=== PATIENT | female | born 1990 | race Caucasian/White ===

== ENCOUNTER 2017-11-17 12:53 | Emergency (ER) | payer SELFPAY ==
[~2017-11-17] VITALS: Ht 162.6 cm; Wt 88.6 kg
[2017-11-17] MEDS ORDERED: METOPROL TAR25 MG PO (13:09)
[2017-11-17 13:38] LABS: HEMATOCRIT 40.3 % (37.0-47.0); HEMOGLOBIN 13.9 g/dl (12.0-16.0); IMMATURE GRANULOCYTES 0.3 % (0.0-5.0); MEAN CELL VOLUME 88.6 fL CALC (80.0-100.0); MEAN CORPUSCULAR HGB 30.5 pG CALC (26.0-32.0); MEAN CORPUSCULAR HGB CONC 34.5 g/L CALC (32.0-36.0); NEUT# 4.29 thou/uL (2.00-7.15); RED BLOOD COUNT 4.55 mill/uL (4.20-5.60); RED CELL DISTRI WIDTH 12.4 % (11.5-15.5)
[2017-11-17 13:39] LABS: URINE BILIRUBIN - DIPSTICK NEGATIVE (NEGATIVE); URINE BLOOD DIPSTICK MODERATE (NEGATIVE); URINE COLOR YELLOW; URINE GLUCOSE - DIPSTICK NEGATIVE (NEGATIVE); URINE KETONE NEGATIVE (NEGATIVE); URINE LEUK ESTERASE NEGATIVE (NEGATIVE); URINE NITRITE - DIPSTICK NEGATIVE (Negative); URINE PROTEIN - DIPSTICK NEGATIVE (NEG-TRACE); URINE SPECIFIC GRAVITY <=1.005; URINE UROBILINOGEN - DIPSTICK 0.2 E.U./dL (0.2)
[2017-11-17 13:49] LABS: URINE CLARITY SL CLOUDY; URINE EPITHELIAL CELLS FEW EPI/hpf (0-FEW)
[2017-11-17 13:52] LABS: INFLUENZA A NONE DETECTED (NONE DETECT); INFLUENZA B NONE DETECTED (NONE DETECT)
[2017-11-17 13:53] LABS: BARBITURATES NEGATIVE (NEGATIVE); COCAINE NEGATIVE (NEGATIVE); METHADONE NEGATIVE (NEGATIVE); OXCYCODONE NEGATIVE (NEGATIVE); TETRAHYDROCANNABIONOL NEGATIVE (NEGATIVE); TRICYLIC ANTIDEPRESSANTS NEGATIVE (NEGATIVE)
[2017-11-17 13:55] LABS: ALBUMIN 4.5 g/dL (3.2-5.0); ALKALINE PHOSPHATASE 82 u/l (38-126); ANION GAP 13 (6-22 (CALC)); BILIRUBIN, TOTAL 0.5 mg/dL (0.0-1.4); BUN 11 mg/dL (7-17); BUN/CREATININE RATIO 16 (12-20 (CALC)); CARBON DIOXIDE 25 mmol/l (22-30); CHLORIDE 105 mmol/l (95-108); CREATININE 0.7 mg/dL (0.5-1.0); GFR > 60 ML/MIN (>=60 (CALC)); GFR FOR AFR.AMER. > 60 ML/MIN (>=60 (CALC)); SGOT/AST 24 u/l (14-36); SGPT/ALT 40 u/l (9-52); SODIUM 138 mmol/l (137-146); TOTAL PROTEIN 7.8 g/dL (6.3-8.2)
[2017-11-17 14:06] LABS: MYOGLOBIN 24 ng/mL (0 - 62)
[2017-11-17] MEDS ORDERED: AMOXICILLIN875 MG PO (15:13)
[2017-11-17 15:22] VITALS: BP 114/59
== END 2017-11-17 15:24 | disposition home or self-care (01) | DRG 153 ==
LOC: ED 12:53
PROVIDERS: Emergency Medicine
DX: J02.0 Streptococcal pharyngitis (principal); R00.2 Palpitations; R06.02 Shortness of breath; R53.1 Weakness; R50.9 Fever, unspecified
CPT/HCPCS: Q9967

== ENCOUNTER 2018-09-13 10:04 | Emergency (ER) | payer SELFPAY ==
[~2018-09-13] VITALS: Ht 162.6 cm; Wt 86.0 kg
[~2018-09-13 10:04] MED LIST: AMOXICILLIN875 MG PO; METOPROL TAR25 MG PO
[2018-09-13 10:37] LABS: GFR > 60 ML/MIN (>=60 (CALC)); GFR FOR AFR.AMER. > 60 ML/MIN (>=60 (CALC)); HEMATOCRIT 43.6 % (37.0-47.0); HEMOGLOBIN 14.7 g/dl (12.0-16.0); IMMATURE GRANULOCYTES 1.3 % (0.0-5.0); MEAN CELL VOLUME 88.8 fL CALC (80.0-100.0); MEAN CORPUSCULAR HGB 29.9 pG CALC (26.0-32.0); MEAN CORPUSCULAR HGB CONC 33.7 g/L CALC (32.0-36.0); NEUT# 6.37 thou/uL (2.00-7.15); RED BLOOD COUNT 4.91 mill/uL (4.20-5.60); RED CELL DISTRI WIDTH 12.7 % (11.5-15.5)
[2018-09-13 10:53] LABS: ANION GAP 14 (6-22 (CALC)); BUN 14 mg/dL (7-17); BUN/CREATININE RATIO 22 (12-20 (CALC)); CARBON DIOXIDE 24 mmol/l (22-30); CHLORIDE 104 mmol/l (95-108); CREATININE 0.7 mg/dL (0.5-1.0); GFR > 60 ML/MIN (>=60 (CALC)); GFR FOR AFR.AMER. > 60 ML/MIN (>=60 (CALC)); POTASSIUM 4.5 mmol/l (3.5-5.1); SODIUM 138 mmol/l (137-146)
[2018-09-13 12:37] VITALS: BP 130/50
== END 2018-09-13 12:37 | disposition home or self-care (01) | DRG 313 ==
LOC: ED 10:04
PROVIDERS: Family Medicine
DX: R07.89 Other chest pain (principal); R06.02 Shortness of breath; R94.31 Abnormal electrocardiogram [ECG] [EKG]; E66.9 Obesity, unspecified
CPT/HCPCS: Q9967

== ENCOUNTER 2019-06-26 08:59 | Inpatient (IN) | payer SELFPAY ==
[~2019-06-26] VITALS: Ht 162.6 cm; Wt 90.7 kg
--- NOTE | 2019-06-26 08:59 | NUR ---
STAFF ADVISED OF PT SCREENING AND STATUS VIA HEALTH DEPARTMENT AND PLACED IN [facility] PRECAUTION ROOM PER CDC RECOMMENDATIONS
--- NOTE | 2019-06-26 08:59 | NUR ---
PT TO NEGATIVE PRESSURE ROOM VIA WC WITH MASK IN PLACE
--- NOTE | 2019-06-26 09:24 | NUR ---
DR ROSALES AT BEDSIDE FOR ASSESSMENT
[2019-06-26 09:39] LABS: HEMATOCRIT 42.7 % (37.0-47.0); HEMOGLOBIN 14.4 g/dl (12.0-16.0); IMMATURE GRANULOCYTES 0.5 % (0.0-5.0); MEAN CELL VOLUME 87.5 fL CALC (80.0-100.0); MEAN CORPUSCULAR HGB 29.5 pG CALC (26.0-32.0); MEAN CORPUSCULAR HGB CONC 33.7 g/L CALC (32.0-36.0); NEUT# 4.16 thou/uL (2.00-7.15); RED BLOOD COUNT 4.88 mill/uL (4.20-5.60); RED CELL DISTRI WIDTH 12.7 % (11.5-15.5)
[2019-06-26 10:05] LABS: ANION GAP 15 (6-22 (CALC)); BUN 20 mg/dL (7-17); BUN/CREATININE RATIO 35 (12-20 (CALC)); CARBON DIOXIDE 19 mmol/l (22-30); CHLORIDE 108 mmol/l (95-108); CREATININE 0.6 mg/dL (0.5-1.0); GFR > 60 ML/MIN (>=60 (CALC)); GFR FOR AFR.AMER. > 60 ML/MIN (>=60 (CALC)); POTASSIUM 4.1 mmol/l (3.5-5.1); SODIUM 138 mmol/l (137-146)
--- NOTE | 2019-06-26 10:15 | NUR ---
PT NASAL AND ORAL SWAB FOR COVID-19 PER [facility] DEPARTMENT RECOMMENDATION; PT TOLERATED WELL; PT REPORTS FEELING TIRED AT THIS TIME; VSS; O2 SATURATION 96%ON RA; PT ADVISED OF CONTINUED WAIT TIME; DENIES ANY NEEDS AT THIS TIME
--- NOTE | 2019-06-26 11:09 | NUR ---
PT MEDICATED AT THIS TIME PER MAR FOR COUGH; DR ROSALES AT BEDSIDE TO DISCUSS POC AND PLAN TO ADMIT; PT VERBALIZES UNDERSTANDING; PT ASSSITED TO BSC; MONITORING DEVICES REAPPLIED; DRY PERSISTENT COUGH NOTED; PT DENIES ANY PAIN AT THIS TIME; CALL LIGHT WITHIN REACH; WILL CONTINUE TO MONITOR
--- NOTE | 2019-06-26 12:00 | NUR ---
PT RESTING ON STRETCHER; NO S/S OF DISTRESS NOTED; ADVISED OF CONTINUED WAIT TIME; CALL LIGHT WITHIN REACH
--- NOTE | 2019-06-26 12:50 | NUR ---
Admission Note Report Given to: SAIRA GILLETTE Transported by: Wheelchair X Stretcher Transported with: X Nurse X Transporter X Patent IV O2 X Associate Professor Of [employer] Location: ICU X [facility]
--- NOTE | 2019-06-26 12:55 | NUR ---
PT ARRIVED TO UNIT VIA STRETHCER WITH ER STAFF ON PRECAUTIONS AND FACE MASK ON; ALERT AND ORIENTED. TRANSPORTED TO NEGATIVE PRESSURE ROOM AND PLACED ON PRECAUTIONS. STOOD AND AMBULATED TO BED WITH STEADY GAIT. PERSISTENT HARD COUGH. OREINTED TO ROOM AND CALL LIGHT SYSTEM. ASSESSMENT COMPLETED AT THIS TIME. LUNGS ARE CLEAR. SKIN FLUSHED; WARM AND MOIST. VSS. SPO2 100% ON ROOM AIR. RESPIRATIONS ARE EVEN AND SHALLOW. NO NOTED EDEMA. ALERT AND ORIENTED X 3. PLAN OF CARE DISCUSSED. PT ENCOURAGED TO VERBALIZE CONCERNS; STATES UNDERSTANDING. SAFETY MEASURES IN PLACE. CALL LIGHT WITHIN REACH.
[2019-06-26 13:00] VITALS: BP 124/68
--- NOTE | 2019-06-26 14:36 | NUR ---
RT AT BEDSIDE FOR BREATHING TREATMENT.
--- NOTE | 2019-06-26 16:15 | NUR ---
SNACK PROVIDED AND TYLENOL GIVEN FOR C/O 5/10 HEADACHE. VSS. NO OTHER REQUESTS OR CONCERNS AT THIS TIME.
[2019-06-26 16:24] VITALS: BP 120/64
--- NOTE | 2019-06-26 18:00 | NUR ---
DR. WATKINS AT BEDSIDE.
--- NOTE | 2019-06-26 18:20 | NUR ---
OXYGEN 2L VIA NC PLACED ON PT BY DR. WATKINS. NEW ORDERS FOR INSENTIVE SPIROMETER AND CT OF CHEST WITH CONTRAST TO RULE OUT PE AND PNA.
[2019-06-26 19:47] VITALS: BP 139/81
--- NOTE | 2019-06-26 20:01 | NUR ---
PT ASSESSED, PT IS HAVING COUGHING SPASMS W/SOB IN BETWEEN. PT 02SATS 100% ON 2L. NEW IV SITE OBTAINED 20RAC FOR CTA ORDERED.
--- NOTE | 2019-06-26 21:30 | NUR ---
CALLED TO GET UPDATE ON STAT CTA ORDERED. I EXPLAINED TO HIM THAT I HAVE CALLED RADIOLOGY TWICE IN ATTEMPTS TO HAVE PT SCANNED, BUT WAS TOLD THAT WE HAVE BEEN BUMPED FOR ED PTS. ATTEMPTS MADE AGAIN AT THIS TIME TO CONTACT RADIOLOGY REGARDING GETTING STAT ORDERS COMPLETED, BUT WAS UNABLE TO REACH TECH. NOTIFIED COLORIST DYER OF NEED.
--- NOTE | 2019-06-26 22:00 | NUR ---
RECEIVED CALL FROM RADIOLOGY TO BRING PT DOWN FOR ORDERED CTA, WILL TAKE PT DOWN FOR SCAN. PRECAUTIONS TAKEN INSTRUCTED BY FINANCIAL UNDERWRITER AND HOSPITAL POLICY AT THIS TIME.
--- NOTE | 2019-06-26 23:05 | NUR ---
PT WAS TAKEN BY SOLAR PROJECT COORDINATION SPECIALIST TO RADIOLOGY FOR CTA ORDERED AND RETURNED TO ROOM. PT TOLERATED WELL, BUT WAS PLACED BACK ON OXYGEN 2LNC FOR COMFORT. ASSISTED PT REPOSITIONING AND OFFERED COMFORT MEASURES. V/S OBTAINED AT THIS TIME.
[2019-06-27 00:04] VITALS: BP 132/85
--- NOTE | 2019-06-27 00:04 | NUR ---
CALLED NEW ORDER IN FOR IS TO BE PLACED AT PT BEDSIDE AND PT EDUCATED ON ITS USE.
[2019-06-27 04:30] VITALS: BP 117/73
--- NOTE | 2019-06-27 04:30 | NUR ---
PT WAS SLEEPING I ENTERED THE ROOM, AWOKE TO MY VOICE. PT REPORTS SLEEPING OKAY. NO S/O DISTRESS. V/S ASSESSED, LUNG SOUNDS ARE TIGHT/DIM. PT DENIES ANY PRODUCTIVITY TO COUGH. IS PLACED AT BEDSIDE AND PT EDUCATED ON IT/ONLY 250 AT THIS TIME MEASURED ON IS. PT VERBALIZED AND DEMONSTRATED UNDERSTANDING OF ITS USE AND AGREED TO USE IT THROUGHOUT WAKE PERIODS. PT WAS OFFERED SNACK/DRINK AT THIS TIME. DENIES ANY OTHER NEEDS, WATER IS AT BEDSIDE. ENCOURAGED PT TO CALL IF ANY NEEDS ARISE AND NOT TO HESITATE TO CALL FOR NEEDS. CALL LIGHT IS AT BEDSIDE.
--- NOTE | 2019-06-27 07:45 | NUR ---
REPORT RECEIVED FROM SAIRA YE. PT SITTING UP IN BED; ALERT AND ORIENTED. REMAINS ON CONTACT/[facility] PRECAUTIONS. C/O SOME RIGHT SIDE AND BACK PAIN FROM COUGHING. REPORTS THAT COUGHING HAS IMPROVED SINCE YESTERDAY. RESPIRATIONS SHALLOW AND UNLABORED; SPO2 97% ON ROOM AIR. LUNG SOUNDS ARE DIMINIHSED. OXYGEN AT BEDSIDE THAT PT WEARS PRN. IS AT BEDSIDE THAT IS USING. PERIPHERAL IV SITES APPEAR HEALTHY AND FLUSH. PLAN OF CARE REVIEWED. PT ENCOURAGED TO VERBALIZE CONCERNS. STATES UNDERSTANDING. SAFETY MEASURES IN PLACE. CALL LIGHT WITHIN REACH.
[2019-06-27 08:00] VITALS: BP 113/60
--- NOTE | 2019-06-27 10:15 | NUR ---
DR. WATKINS AT BEDSIDE.
--- NOTE | 2019-06-27 10:39 | NUR ---
RT AT BEDSIDE FOR ABG.
[2019-06-27 12:10] VITALS: BP 110/47
--- NOTE | 2019-06-27 12:15 | NUR ---
PT SITTING UP IN BED; ALERT AND ORIENTED. VSS. REQUESTS FOR ONE OF HER 2 IV SITES TO BE D/CD. 20G TO RH REMOVED. LUNCH TRAY PROVIDED. NO OTHER REQUESTS OR CONCERNS AT THIS TIME.
[2019-06-27 15:45] VITALS: BP 124/65
--- NOTE | 2019-06-27 15:51 | NUR ---
PT HAS FACIAL FLUSHING; HAS BEEN USING IS UP TO 1000, BUT REPORTS FEELING LIGHT HEADED AFTER USE. ENCOURGED TO RELAX AND DEEP BREATH. ALSO REPORTS DIARRHEA AFTER LUNCH. PT IS STAYING WELL HYDRATED AND DRINKING WATER. VSS. SAFETY MEASURES IN PLACE. CALL LIGHT WITHIN REACH.
--- NOTE | 2019-06-27 19:01 | NUR ---
REPORT FROM NAIN CHÁVEZ. PT SITTING UP IN BED. NO APPARENT RESPIRATORY DISTRESS NOTED. PT REMAINS ON ISOLATION AT THIS TIME. DENIES ANY CURRENT WANTS OR NEEDS. CALL LIGHT WITHIN REACH. WILL CONTINUE TO MONITOR.
[2019-06-27 19:59] VITALS: BP 132/70
--- NOTE | 2019-06-27 20:08 | NUR ---
PT RESTING IN BED. VISITOR BROUGHT PT FOOD AND PHONE MONITORING AND EVALUATION ADVISOR TO NURSES STATION. BRIM CURLER DELIVERED SAID ITEMS AT THIS TIME. ASSESSMENT COMPLETE. RESPIRATIONS SHALLOW PT O2 SAT 98% RA. DENIES ANY PAIN OR DISCOMFORT. IV SITE FLUSHED WELL. DISCUSSED POC. PT VERBALIZED UNDERSTANDING. CALL LIGHT WITHIN REACH. WILL CONTINUE TO MONITOR
--- NOTE | 2019-06-28 00:35 | NUR ---
PT RESTING IN BED. NO APPARENT DISTRESS NOTED. VS WNL. PT DENIES ANY CURRENT WANTS OR NEEDS. CALL LIGHT WITHIN REACH. WILL CONTINUE TO MONITOR.
[2019-06-28 00:39] VITALS: BP 115/54
--- NOTE | 2019-06-28 03:00 | NUR ---
EXTRA BLANKETS PROVIDED PT C/O OF BEING COLD. AIR TURNED UP. PT AFEBRILE. DENIES ANY OTHER WANTS OR NEEDS. CALL LIGHT WITHIN REACH. WILL CONTINUE TO MONITOR.
[2019-06-28 04:58] VITALS: BP 123/59
--- NOTE | 2019-06-28 07:05 | NUR ---
REPORT RECEIVED FROM YUMIKO RATLIFF.
--- NOTE | 2019-06-28 07:45 | NUR ---
PT SITTING UP IN BED; ALERT AND ORIENTED. REMAINS ON ISOLATION PRECAUTIONS. DENIES PAIN. STATES THAT COUGH IS BETTER THAN LAST NIGHT. RESPIRATIONS SHALLOW AND UNLABORED; HOURSE VOICE. VSS. SITTING UP FOR BREAKFAST. PLAN OF CARE REVIEWED. PT ENCOURAGED TO VERBALIZE CONCERNS. STATES UNDERSTANDING. SAFETY MEASURES IN PLACE. CALL LIGHT WITHIN REACH.
[2019-06-28 08:03] VITALS: BP 114/54
--- NOTE | 2019-06-28 08:35 | NUR ---
FILE KEEPER AT BEDSIDE. MD AND PATIENT NOTIFIED OF NEGATIVE TEST RESULTS FOR COVID-19. REMOVED FROM ISOLATION PRECAUTIONS.
[2019-06-28 11:40] VITALS: BP 110/75
--- NOTE | 2019-06-28 13:00 | NUR ---
PT SITTING UP ON COUCH WITH NO REQUESTS OR CONCERNS. INDEPENDENT IN ROOM.
--- NOTE | 2019-06-28 13:50 | NUR ---
YIV site discontinued, cath intact. No edema , no redness, voices no discomfort.
--- NOTE | 2019-06-28 14:10 | NUR ---
Discharge instructions given. Patient verbalizes understanding of same. Discharged in stable condition via Wheelchair to Home with family. All belongings sent with pt.
--- NOTE | 2019-07-09 12:49 | NUR ---
LATE ENTRY- 06/28/19 AT 08/16 CALL RECEIVED FROM [facility] AND GIVEN RESULT OF COVID 19. RESULTS WERE NEGATIVE. NOTIFIED ON 06/28/19 AT 0820.
== END 2019-06-28 14:10 | disposition home or self-care (01) | DRG 153 ==
LOC: ED 08:59 → ED-I 11:00 → ED 11:19 → MS2 11:20
PROVIDERS: Family Medicine; ADMIT Internal Medicine; ATTEND Internal Medicine
DX: J06.9 Acute upper respiratory infection, unspecified (principal); R00.0 Tachycardia, unspecified; Z20.828 Contact with and (suspected) exposure to other viral communicable diseases
CPT/HCPCS: Q9967

== ENCOUNTER 2021-06-15 18:31 | Emergency (ER) | payer OTHER ==
[~2021-06-15] VITALS: Ht 162.6 cm; Wt 100.0 kg
[2021-06-15 20:47] LABS: HEMATOCRIT 42.6 % (37.0-47.0); HEMOGLOBIN 14.4 g/dl (12.0-16.0); IMMATURE GRANULOCYTES 0.2 % (0.0-5.0); MEAN CELL VOLUME 88.2 fL CALC (80.0-100.0); MEAN CORPUSCULAR HGB 29.8 pG CALC (26.0-32.0); MEAN CORPUSCULAR HGB CONC 33.8 g/dL CAL (32.0-36.0); NEUT# 5.27 thou/uL (2.00-7.15); RED BLOOD COUNT 4.83 mill/uL (4.20-5.60); RED CELL DISTRI WIDTH 12.8 % (11.5-15.5)
[2021-06-15 20:57] LABS: ALBUMIN 4.6 g/dL (3.2-5.0); ALKALINE PHOSPHATASE 99 u/l (38-126); ANION GAP 14 (6-22 (CALC)); BILIRUBIN, TOTAL 0.6 mg/dL (0.0-1.4); BUN 13 mg/dL (7-17); BUN/CREATININE RATIO 22 (12-20 (CALC)); CARBON DIOXIDE 25 mmol/l (22-30); CHLORIDE 103 mmol/l (95-108); CREATININE 0.6 mg/dL (0.5-1.0); GFR > 60 ML/MIN (>=60 (CALC)); GFR FOR AFR.AMER. > 60 ML/MIN (>=60 (CALC)); LIPASE 66 u/l (23-300); POTASSIUM 3.9 mmol/l (3.5-5.1); SGOT/AST 41 u/l (14-36); SODIUM 138 mmol/l (137-146); TOTAL PROTEIN 8.1 g/dL (6.3-8.2)
[2021-06-15 21:03] LABS: URINE BILIRUBIN - DIPSTICK NEGATIVE (NEGATIVE); URINE BLOOD DIPSTICK LARGE (NEGATIVE); URINE COLOR YELLOW; URINE GLUCOSE - DIPSTICK NEGATIVE (NEGATIVE); URINE KETONE NEGATIVE (NEGATIVE); URINE PROTEIN - DIPSTICK NEGATIVE (NEG-TRACE); URINE UROBILINOGEN - DIPSTICK 0.2 E.U./dL (0.2)
[2021-06-15 21:05] LABS: URINE LEUK ESTERASE SMALL (NEGATIVE); URINE NITRITE - DIPSTICK NEGATIVE (Negative)
[2021-06-15 21:17] LABS: URINE AMORPH SEDIMENT MANY hpf (NONE-FEW); URINE SQUAMOUS EPITHELIAL CELL MODERATE EPI/hpf (0-FEW)
[2021-06-15] MEDS ORDERED: HYDROCO/APAP1 TA9 PO (22:15)
[2021-06-15] MEDS ORDERED: MEDDOSEPAK PO (22:15)
[2021-06-15] MEDS ORDERED: KEFLEX500 MG PO (22:15)
[2021-06-15] MEDS ORDERED: FLEXERIL5 M1 PO (22:15)
[2021-06-15 23:00] VITALS: BP 143/92
== END 2021-06-15 23:22 | disposition home or self-care (01) | DRG 563 ==
LOC: ED 18:31
DX: S39.012A Strain of muscle, fascia and tendon of lower back, initial encounter (principal); N39.0 Urinary tract infection, site not specified; X50.0XXA Overexertion from strenuous movement or load, initial encounter; Y93.H2 Activity, gardening and landscaping
CPT/HCPCS: Q9967

== ENCOUNTER 2021-07-30 11:47 | Emergency (ER) | payer OTHER ==
[2021-07-30] VITALS (21 sets, daily range): BP systolic 111–147; BP diastolic 61–90
[~2021-07-30] VITALS: Ht 162.6 cm; Wt 105.0 kg
[~2021-07-30 11:47] MED LIST changes: +FLEXERIL5 M1 PO; +HYDROCO/APAP1 TA9 PO; +KEFLEX500 MG PO; +MEDDOSEPAK PO
[2021-07-30 12:53] LABS: URINE BILIRUBIN - DIPSTICK NEGATIVE (NEGATIVE); URINE BLOOD DIPSTICK NEGATIVE (NEGATIVE); URINE COLOR YELLOW; URINE GLUCOSE - DIPSTICK NEGATIVE (NEGATIVE); URINE KETONE NEGATIVE (NEGATIVE); URINE PH 7.5 (4.5-8.0); URINE PROTEIN - DIPSTICK NEGATIVE (NEG-TRACE); URINE SPECIFIC GRAVITY 1.015; URINE UROBILINOGEN - DIPSTICK 0.2 E.U./dL (0.2)
[2021-07-30 12:54] LABS: HEMATOCRIT 43.9 % (37.0-47.0); HEMOGLOBIN 14.6 g/dl (12.0-16.0); IMMATURE GRANULOCYTES 0.2 % (0.0-5.0); MEAN CELL VOLUME 89.4 fL CALC (80.0-100.0); MEAN CORPUSCULAR HGB 29.7 pG CALC (26.0-32.0); MEAN CORPUSCULAR HGB CONC 33.3 g/dL CAL (32.0-36.0); NEUT# 5.62 thou/uL (2.00-7.15); RED BLOOD COUNT 4.91 mill/uL (4.20-5.60); RED CELL DISTRI WIDTH 13.1 % (11.5-15.5)
[2021-07-30 12:54] LABS: URINE LEUK ESTERASE SMALL (NEGATIVE); URINE NITRITE - DIPSTICK NEGATIVE (Negative)
[2021-07-30 12:57] LABS: URINE AMORPH SEDIMENT MANY hpf (NONE-FEW)
[2021-07-30 12:58] LABS: URINE SQUAMOUS EPITHELIAL CELL FEW EPI/hpf (0-FEW)
[2021-07-30 13:15] LABS: ALBUMIN 4.6 g/dL (3.2-5.0); ALKALINE PHOSPHATASE 79 u/l (38-126); ANION GAP 12 (6-22 (CALC)); BILIRUBIN, TOTAL 0.4 mg/dL (0.0-1.4); BUN 11 mg/dL (7-17); BUN/CREATININE RATIO 16 (12-20 (CALC)); CARBON DIOXIDE 25 mmol/l (22-30); CHLORIDE 106 mmol/l (95-108); CREATININE 0.7 mg/dL (0.5-1.0); GFR > 60 ML/MIN (>=60 (CALC)); GFR FOR AFR.AMER. > 60 ML/MIN (>=60 (CALC)); POTASSIUM 4.3 mmol/l (3.5-5.1); SGOT/AST 24 u/l (14-36); SODIUM 139 mmol/l (137-146); TOTAL PROTEIN 7.7 g/dL (6.3-8.2)
[2021-07-30] MEDS ORDERED: ZPAK PO (14:49)
[2021-07-30] MEDS ORDERED: OMNI-PAC300 MG PO (15:15)
== END 2021-07-30 16:40 | disposition home or self-care (01) | DRG 690 ==
LOC: ED 11:47
PROVIDERS: Family Medicine
DX: N39.0 Urinary tract infection, site not specified (principal); E86.0 Dehydration; R42 Dizziness and giddiness; Z87.440 Personal history of urinary (tract) infections

== ENCOUNTER 2022-01-16 04:42 | Emergency (ER) | payer OTHER ==
[~2022-01-16] VITALS: Ht 162.6 cm; Wt 100.0 kg
[2022-01-16] VITALS (9 sets, daily range): BP systolic 128–166; BP diastolic 85–110
[~2022-01-16 04:42] MED LIST changes: +OMNI-PAC300 MG PO; +ZPAK PO
[2022-01-16 05:16] LABS: HEMATOCRIT 41.8 % (37.0-47.0); HEMOGLOBIN 14.2 g/dl (12.0-16.0); IMMATURE GRANULOCYTES 0.2 % (0.0-5.0); MEAN CELL VOLUME 88.9 fL CALC (80.0-100.0); MEAN CORPUSCULAR HGB 30.2 pG CALC (26.0-32.0); NEUT# 6.59 thou/uL (2.00-7.15); RED BLOOD COUNT 4.7 mill/uL (4.20-5.60); RED CELL DISTRI WIDTH 13.7 % (11.5-15.5)
[2022-01-16 05:24] LABS: URINE BILIRUBIN - DIPSTICK NEGATIVE (NEGATIVE); URINE BLOOD DIPSTICK LARGE (NEGATIVE); URINE COLOR RED; URINE GLUCOSE - DIPSTICK NEGATIVE (NEGATIVE); URINE KETONE NEGATIVE (NEGATIVE); URINE PROTEIN - DIPSTICK NEGATIVE (NEG-TRACE); URINE SPECIFIC GRAVITY 1.025; URINE UROBILINOGEN - DIPSTICK 0.2 E.U./dL (0.2)
[2022-01-16 05:26] LABS: ALBUMIN 4.4 g/dL (3.2-5.0); ALKALINE PHOSPHATASE 100 u/l (38-126); AMYLASE 93 u/l (30-110); ANION GAP 14 (6-22 (CALC)); BUN 13 mg/dL (7-17); BUN/CREATININE RATIO 19 (12-20 (CALC)); CARBON DIOXIDE 20 mmol/l (22-30); CHLORIDE 108 mmol/l (95-108); CREATININE 0.7 mg/dL (0.5-1.0); GFR FOR AFR.AMER. > 60 ML/MIN (>=60 (CALC)); GFR OTHER RACES > 60 ML/MIN (>=60 (CALC)); LIPASE 69 u/l (23-300); POTASSIUM 3.9 mmol/l (3.5-5.1); SGOT/AST 33 u/l (14-36); SODIUM 138 mmol/l (137-146); TOTAL PROTEIN 7.4 g/dL (6.3-8.2)
[2022-01-16 05:33] LABS: URINE EPITHELIAL CELLS MODERATE EPI/hpf (0-FEW); URINE LEUK ESTERASE NEGATIVE (NEGATIVE); URINE NITRITE - DIPSTICK NEGATIVE (Negative); URINE RBC >100 RBC/hpf (0-5)
[2022-01-16 05:34] LABS: URINE BACTERIA FEW hpf
[2022-01-16 05:38] LABS: BILIRUBIN, TOTAL 0.2 mg/dL (0.0-1.4)
[2022-01-16] MEDS ORDERED: LORTAB 1010 MG PO ×3 (06:47→06:54)
[2022-01-16] MEDS ORDERED: TAMSULOSIN0.4 MG PO ×2 (06:47→06:54)
== END 2022-01-16 07:09 | disposition home or self-care (01) | DRG 694 ==
LOC: ED 04:42
PROVIDERS: Emergency Medicine
DX: N13.2 Hydronephrosis with renal and ureteral calculous obstruction (principal)
CPT/HCPCS: Q9967

== ENCOUNTER 2022-07-21 09:16 | Emergency (ER) | payer OTHER ==
[~2022-07-21] VITALS: Ht 162.6 cm; Wt 81.0 kg
[~2022-07-21 09:16] MED LIST changes: +LORTAB 1010 MG PO; +TAMSULOSIN0.4 MG PO
[2022-07-21 09:24] VITALS: BP 157/94
[2022-07-21 09:30] VITALS: BP 148/88
== END 2022-07-21 09:42 | disposition home or self-care (01) | DRG 951 ==
LOC: ED 09:16 → LWOBS 09:33
DX: Z53.21 Procedure and treatment not carried out due to patient leaving prior to being seen by health care provider (principal)